=== PATIENT | male | born 1975 | race Caucasian/White ===

== ENCOUNTER 2017-08-28 09:44 | Emergency (ER) | payer MEDICARE, MEDICAID, SELFPAY ==
[2017-08-28 09:45] VITALS: BP 145/92; PULSE 73; RESP 16; TEMP 37; O2SAT 96; BMI 55.2
--- NOTE | 2017-08-28 10:00 | RAD_ITS ---
STUDY: X-RAY - LUMBAR SPINE REASON FOR EXAM: Male, 42 years old. Atraumatic back pain. TECHNIQUE: 3 view(s) of the lumbar spine were obtained. COMPARISON: None FINDINGS: Normal lumbar lordosis. There is no substantial scoliosis. There is a normal alignment of the vertebrae. Normal vertebral bodies and endplates. There is diffuse intervertebral disc space narrowing with osteophyte formation most marked at L2-3. There is diffuse facet sclerosis. The soft tissue structures are unremarkable. RAD/Lumbar Spine 2 or 3 Views IMPRESSION: Diffuse lumbar spondylosis as described. Electronically Signed: Viral Garcia MD at 10:59 EDT , Service support ,
--- NOTE | 2017-08-28 10:15 | ED.DCSUM_ITS ---
- ER Visit Summary Date of Service: 08/28/17 Chief Complaint: Body aches History of Present Illness: The patient is a 42 M who states that he has been moving from one trailer to another and [place]. Does not have a primary care physician. He states that he went to bed last night feeling okay but when he woke up this morning he had pain in his back particularly the low back. He notes paresthesias in the bilateral legs. Denies any fevers or rashes. No recent abscesses. He denies any IV drug use. Denies any bowel or bladder dysfunction. No leg weakness. He states that his back hurts to move and the pain radiates down the left leg. Physical Examination: Afebrile vital signs are stable Gen: Well-nourished well-developed morbidly obese and unkempt Head: Normocephalic atraumatic Eyes: Perrl EOMI ENT: TMs clear no rhinorrhea moist mucous membranes Neck: Supple no lymphadenopathy no JVD nontender CVS: Regular rate rhythm no murmurs normal S1-S2 Respiratory: No distress clear to auscultation bilaterally chest nontender Abdomen: Soft nontender nondistended normal bowel sounds no masses Back: Back shows tenderness to palpation over the lumbar paraspinal musculature. No rashes noted. Extremity: Nontender no edema Skin: Normal color no rash Neuro: alert orientated ?3 CN II-XII intact normal strength sensation reflexes patient has an antalgic gait. Psych: Normal affect normal mood Test Results: Lumbar spine films demonstrated significant degenerative changes particularly at L2-L3. Significant spurring seen. Emergency Department Course and Treatment: Patient most likely has a lumbar strain of the musculature which is resulting in exacerbation of an underlying back condition. Patient will receive Toradol, morphine, and Valium here in the emergency department. I will write for Valium Motrin and a few oxycodone at home. Patient was advised he needs to establish primary care as he will most likely be developing chronic back issues given his obesity and the significant degenerative changes that are noted on his lumbar spine. He will return if worsening (fever, neurologic deficits, bowel or bladder dysfunction, etc.) Impression: 1. Lumbar muscle strain 2. Sciatica 3. Degenerative joint disease of the lumbar spine This note was generated with DVDPlayation software. It may contain incorrect words, spelling, and punctuation that were not noted in review of the chart prior to signing ED Disposition - Plan for ED Patient: Disposition: Home or Assisted Living Chief Complaint: Other, Pain/Inj Instructions: ED Sciatica, ED Degenerative Joint Disease Prescriptions: Oxycodone [Oxyir] 5 mg PO Q6H PRN PRN 4 Days #16 tab PRN Reason: Pain Diazepam [Valium] 5 mg PO Q8 PRN #15 tab PRN Reason: Muscle Spasm Ibuprofen [Motrin] 800 mg PO TID PRN PRN #20 tab PRN Reason: Pain Referrals: Daniela Sheffield [NON-STAFF] - (call to arrange follow up) Additional Instructions: I would recommend calling Medicaid and find out if you were assigned a provider for primary care.
[2017-08-28] MEDS: morphine 10 MG/ML Syringe IM (11:17)
[2017-08-28] MEDS: Ketorolac 60 MG/2 ML Vial IM (11:18)
[2017-08-28] MEDS: diazePAM 5 MG Tablet PO (11:18)
== END 2017-08-28 12:08 | disposition home or self-care (01) ==
PROVIDERS: Emergency Provider Emergency Medicine
DX: S39.012A Strain of muscle, fascia and tendon of lower back, initial encounter (principal); X58.XXXA Exposure to other specified factors, initial encounter; Y93.9 Activity, unspecified; Y92.9 Unspecified place or not applicable; Y99.9 Unspecified external cause status; M54.30 Sciatica, unspecified side; M47.816 Spondylosis without myelopathy or radiculopathy, lumbar region; E66.01 Morbid (severe) obesity due to excess calories; Z85.528 Personal history of other malignant neoplasm of kidney
CPT/HCPCS: 72100; 96372; 99283

== ENCOUNTER 2017-09-05 14:46 | Inpatient (IN) | payer MEDICARE, MEDICAID, SELFPAY ==
[2017-09-05] VITALS (9 sets, daily range): BP systolic 130–161; BP diastolic 72–100; PULSE 65–106; RESP 14–18; TEMP 36.4–37.2; O2SAT 95–100; BMI 47.5; BMI 47.2; BMI 47.3
--- NOTE | 2017-09-05 15:52 | CT_ITS ---
STUDY: CT CERVICAL SPINE WITHOUT CONTRAST REASON FOR EXAM: Male, 42 years old. RADIATION DOSAGE (If Supplied By Facility): CTDIvol = ( 33.13 ) mGy, DLP = ( 800.69 ) mGycm TECHNIQUE: High resolution transaxial imaging was performed without contrast material. Sagittal and coronal images were reconstructed. Individualized dose optimization techniques were used for this CT. COMPARISON: None FINDINGS: Normal craniovertebral junction. Normal anterior atlantoaxial articulation. Normal odontoid process. Normal cervical lordosis. Normal vertebral bodies and posterior osseous elements. Mild intervertebral disc space narrowing noted throughout the cervical spine. No demonstrated fracture. No central canal stenosis, there is bilateral foraminal narrowing. Normal visualized soft tissue structures. CT/Spine Cervical without Contras IMPRESSION: Multilevel degenerative changes, as described above. Electronically Signed: Arnol Argueta MD at 16:38 EDT , Service support ,
--- NOTE | 2017-09-05 15:52 | CT_ITS ---
STUDY: CT LUMBAR SPINE WITHOUT CONTRAST REASON FOR EXAM: Male, 42 years old. SYNCOPE WITH FALL RADIATION DOSAGE (If Supplied By Facility): CTDIvol = ( 57.97 ) mGy, DLP = ( 1553.71 ) mGycm TECHNIQUE: The patient was scanned in a multi detector CT scanner. High resolution transaxial imaging was performed. Sagittal and coronal images were reconstructed. Individualized dose optimization techniques were used for this CT. COMPARISON: None FINDINGS: Normal lumbar lordosis. There is no substantial scoliosis. Normal vertebrae of the lumbar spine. L1-2: There is endplate spondylosis of the vertebral body. Loss of intervertebral disc height. Severe bilateral neural foraminal stenosis with compression of the exiting nerve roots. Narrowing of the lateral recess. No significant spinal stenosis. There is bilateral ligamentum flavum thickening. There is bilateral facet arthropathy. L2-3: There is endplate spondylosis of the vertebral body. Loss of intervertebral disc height. Severe bilateral neural foraminal stenosis with compression of the exiting nerve roots. Narrowing of the lateral recess. Severe spinal stenosis. There is bilateral ligamentum flavum thickening. There is bilateral facet arthropathy. L3-4: There is endplate spondylosis of the vertebral body. Loss of intervertebral disc height. Severe bilateral neural foraminal stenosis with compression of the exiting nerve roots. Narrowing of the lateral recess. Mild spinal stenosis. There is bilateral ligamentum flavum thickening. There is bilateral facet arthropathy. Vacuum disc phenomenon. L4-5: There is endplate spondylosis of the vertebral body. Loss of intervertebral disc height. Severe bilateral neural foraminal stenosis with compression of the exiting nerve roots. Narrowing of the lateral recess. Moderate spinal stenosis. There is bilateral ligamentum flavum thickening. There is bilateral facet arthropathy. L5-S1: There is endplate spondylosis of the vertebral body. Loss of intervertebral disc height. Normal bilateral facet joints. Normal central canal and bilateral lateral recesses. Normal bilateral intervertebral neural foramina. Normal visualized paraspinous soft tissue structures. CT/Spine Lumbar without Contrast IMPRESSION: Multilevel degenerative changes, as described above. Electronically Signed: Oz Parsons MD at 16:48 EDT , Service support ,
--- NOTE | 2017-09-05 15:52 | CT_ITS ---
STUDY: CT BRAIN WITHOUT CONTRAST REASON FOR EXAM: Male, 42 years old. Syncope, headache after a fall RADIATION DOSAGE (If Supplied By Facility): CTDIvol = ( 44.99 ) mGy, DLP = ( 829.85 ) mGycm TECHNIQUE: Transaxial CT imaging of the brain was performed without administration of intravenous contrast material. Individualized dose optimization techniques were used for this CT. COMPARISON: None. FINDINGS: Normal soft tissue structures. Normal calvarium. Normal size ventricles and extra-axial spaces for the patient's age. Normal white matter tracts of the cerebral hemispheres. Normal basal ganglia and thalami. Normal brainstem. Normal cerebellum. There is no intracranial hemorrhage. There are no findings of an acute ischemic infarction. Normal visualized paranasal sinuses. CT/Brain/Head without Contrast IMPRESSION: Normal unenhanced CT scan of the brain. Electronically Signed: Arnol Argueta MD at 16:36 EDT , Service support ,
--- NOTE | 2017-09-05 15:53 | EKG12_ITS ---
Test Reason : SYNCOPE Blood Pressure : / mmHG Vent. Rate : 070 BPM Atrial Rate : 070 BPM P-R Int : 152 ms QRS Dur : 084 ms QT Int : 414 ms P-R-T Axes : 039 014 029 degrees QTc Int : 447 ms Sinus rhythm with marked sinus arrhythmia Otherwise normal ECG Confirmed by FELICIANO BACA, ALEXYS ([id number]), loan expeditor VIVIAN SNELL ([id number]) on 09/08/2017 1:13:05 PM Referred By: KRYSTYNA Confirmed By:ALEXYS WIGGINS MD
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
--- NOTE | 2017-09-05 16:00 | PCA ---
NO OLD EKG
[2017-09-05 16:08] LABS: Absolute Lymphocyte Count 2.15 X10^3/ul (0.83-4.51); Absolute Neutrophil Count 6.1 X10^3/uL (2.0-7.7); Basophil# 0.05 X10^3/uL; Basophil% 0.5 % (0-1); Eosinophil# 0.13 X10^3/uL; Eosinophils% 1.4 % (0-5); Hematocrit 46.2 % (40-54); Hemoglobin 15.9 g/dl (13.0-16.5); Lymphocyte # 2.15 X10^3/ul (4.0); Lymphocyte % 22.8 % (19-41); Mean Corp Hgb Conc 34.4 g/gl (32-36); Mean Corpuscular Hgb 31.2 pg (27.0-32.0); Mean Corpuscular Volume 90.8 fL (80-94); Mean Platelet Vol. 11.1 fl (6.2-12.0); Monocyte# 1.01 X10^3/uL; Monocyte% 10.7 % (0-10); Neutrophil # 6.06 X10^3/uL (2.7-7.7); Neutrophil % 64.2 % (47-70); Platelet Count 284 K/mm3 (150-450); RBC Distribution Width CV 13.3 % (11.6-14.6); RBC Distribution Width SD 43.9 fl (35.1-43.9); Red Blood Count 5.09 M/mm3 (4.6-6.2); White Blood Count 9.4 K/mm3 (4.4-11.0)
[2017-09-05 16:12] LABS: POSITIVE COUNT NO; POSITIVE DIFFERENTIAL NO; POSITIVE MORPHOLOGY NO
[2017-09-05 16:21] LABS: ALB/GLOB Ratio 0.8 RATIO (0.9-2.4); AST(SGOT) 29 U/L (15-37); Alanine Aminotransfer ALT/SGPT 49 U/L (16-61); Albumin, Serum 2.9 g/dL (3.2-5.0); Alkaline Phosphatase 82 U/L (45-117); Anion Gap 7 (5-15); BUN 8 mg/dL (7-18); BUN/Creat Ratio 9.1 RATIO (10-20); Calcium,Total 8.7 mg/dL (8.5-10.1); Chloride 105 mmol/L (98-107); Creatinine, Serum 0.88 mg/dL (0.70-1.30); EST Glomerular Filtration Rate 100 mL/min (>60); Est Glom Filt Rate - Afr Amer 121 mL/min (>60); Estimated Creatinine Clearance 111.76 ml/min; Globulin 3.7 g/dL (2.2-4.2); Glucose 93 mg/dL (74-106); Potassium 3.8 mmol/L (3.5-5.1); Protein, Total 6.6 g/dL (6.4-8.2); Sodium Level 138 mmol/L (136-145)
[2017-09-05 16:25] LABS: Prothrombin Time (Protime)PT. 12.9 SECONDS (11.7-14.9)
[2017-09-05 16:44] LABS: Alcohol, Blood (Medical)-Serum < 3.0 mg/dL
--- NOTE | 2017-09-05 16:52 | ED.RN ---
informed Dr of pt c/o left leg jumping when lying back in bed. also states cannot squeeze rt hand shut.
--- NOTE | 2017-09-05 20:20 | RAD_ITS ---
STUDY: X-RAY - RIGHT HAND REASON FOR EXAM: Male, 42 years old. Right wrist pain after fall TECHNIQUE: 3 view(s) of the hand. COMPARISON: None. FINDINGS: Normal radiocarpal articulation. Normal distal radioulnar joint. Normal visualized carpal bones. Normal carpal articulations Normal carpometacarpal articulation of the thumb. Normal second through fifth carpometacarpal joints. Normal metacarpi. Normal metacarpophalangeal joint of the thumb. Normal interphalangeal joint of the thumb. Normal proximal and distal phalanges of the thumb. Normal metacarpophalangeal joints of the second through fifth fingers. Normal proximal and distal interphalangeal joints of the second through fifth fingers. Normal phalanges of the second through fifth fingers. The soft tissue structures are unremarkable. RAD/Hand Min 3 Views IMPRESSION: Normal x-ray examination of the hand. Electronically Signed: Oz Parsons MD at 20:53 EDT , Service support ,
--- NOTE | 2017-09-05 20:32 | HP.PCM_ITS ---
Problem List (1) HTN (hypertension) Status: Chronic Qualifiers: Hypertension type: essential hypertension Qualified Code(s): I10 - Essential (primary) hypertension (2) Depression Status: Chronic Qualifiers: Depression Type: unspecified Qualified Code(s): F32.9 - Major depressive disorder, single episode, unspecified (3) Morbid obesity Status: Chronic (4) GERD (gastroesophageal reflux disease) Status: Chronic Qualifiers: Esophagitis presence: esophagitis presence not specified Qualified Code(s) : K21.9 - Gastro-esophageal reflux disease without esophagitis (5) Weakness of extremity Status: Acute (6) Back pain Status: Acute Qualifiers: Back pain location: back pain in other location Chronicity: acute Qualified Code(s): M54.9 - Dorsalgia, unspecified (7) Urinary incontinence Status: Acute Qualifiers: Urinary Incontinence type: unspecified incontinence Qualified Code(s): R32 - Unspecified urinary incontinence (8) Syncope Status: Acute Qualifiers: Syncope type: unspecified Qualified Code(s): R55 - Syncope and collapse History of Present Illness Date of Admission: 09/05/17 Chief Complaint: Fall, syncope, BL extremity weakness and Back Pain The patient is a 42 y/o M w/ PMHx: Morbid Obesity, Depression, EtOH Abuse, Polysubstance Abuse (Cannabis, EtOH, Meth-snorted) w/ last EtOH intake the evening prior w/ normal 12-pack (16 oz each) daily and last meth the day prior, GERD, HTN who presents to the [facility] ED on 09/05/17 with history of onset both upper and lower extremity weakness, difficulty walking starting at the beginning of August with evaluation per physician with treatment w/ IBU and flexeril with minimal improvement w/ onset on day of ED presentation worsened extremity weakness, urinary incontinence following episode of kneeling down to fish bait picker items off the floor and loosing his balance, falling flat forward onto his face with short period of loss of consciousness with quick resolution of mental status, no shaking. He had ongoing urinary leaking x 3 while in the ED. He noted notable pain to the BL UE as when he fell forward he landed on his wrists. Work-up in the ED included T 97.6, heart rate 72, BP 142/72, respiratory rate 14, 100% on room air, unremarkable CBC, normal coags, unremarkable CMP. Past Medical History Past Medical History (Chronic Problems): Chronic Problems HTN (hypertension) (Chronic) Depression (Chronic) Morbid obesity (Chronic) GERD (gastroesophageal reflux disease) (Chronic) Allergies No Known Allergies Allergy (Verified 08/28/17 09:47) Home Medications: Ambulatory Orders Medication Instructions Recorded NK [NK] 09/05/17 Surgical History: - - Right kidney tumor resection. Psychiatric History: Depression Lives: Spouse/ Significant Other Smoking Status: Former smoker - Smoking approximately 6 years prior. Tobacco Use: Non-smoker Alcohol: Heavy - Drinks at least a 12 pack per day, 16 ounce each. Drugs: - - Notes occasional methamphetamine and cannabis usage. Notes cannabis this is nearly daily and methamphetamines intermittently with last admitted usage the day prior, snorted. - *Family History Maternal History Items: Heart Disease, Hypertension Paternal History Items: Diabetes Review of Systems Constitutional: Reports: Malaise, Weakness, Fatigue. Denies: Chills, Fever, Weight Change HEENT: Denies: Head Aches, Sinus Congestion, Sinus Drainage Cardiovascular: Reports: Syncope. Denies: Chest Pain, Palpitations Respiratory: Denies: Cough, Shortness of breath at rest, Sputum production Gastrointestinal: Denies: Abdominal Pain, Nausea, Vomiting Genitourinary: Reports: Incontinence. Denies: Dysuria Musculoskeletal: Reports: Back Pain. Denies: Joint Pain, Joint Tenderness Skin: Denies: Rash, Wounds Neurological: Reports: Focal weakness. Denies: Numbness, Tingling Psychiatric: Reports: Depression. Denies: Anxiety, Homicidal Ideations, Suicidal Ideations Hematologic/ Lymphatic: Denies: Easy Bruising, Easy Bleeding VTE Information - Inpt Only VTE Present on Admission: No VTE Mechan Device Prophylaxis: SCD's VTE Pharm Prophylaxis ordered?: Yes Patient Problems: Active and Suspected Problems Weakness of extremity (Acute) Back pain (Acute) Urinary incontinence (Acute) Syncope (Acute) Subjective: Laying in the ED, uncomfortable appearing, holding RUE, facial abrasions noted, injected sclera. Objective: Physical Examination: General: awake, alert, oriented x 3 and cooperative, laying in the ED bed in no apparent distress, does note ongoing difficulty moving extremities. Skin: normal color, turgor, no icterus, cyanosis except facial and BL UE abrasions s/p fall. HEENT: AT/NC, EOMI, PERRLA, dry MM, no carotid bruits or JVD noted although difficult secondary to thickened neck, injected sclera BL. Lungs: CTA bilaterally, moderate effort, mild decrease BL bases, no rales, ronchi or wheezing. Heart: Regular rate and rhythm; no gallop, rub audible. Abdomen: soft, morbidly obese, NTTP, ND, normal BS, no HSM detected; however, habitus makes examination difficult. Extremities: no cyanosis, clubbing, BL LE ankle 1+ edema, abrasions to extremities and face as noted skin, R hand w/ difficulty making fist secondary to discomfort. Neurological: patient awake, alert, oriented x 3; cognitive function intact; pupils equally reactive to light and accomodation; cranial nerves II-XII grossly normal, moving all 4 extremities but limited, 4/5 BL UE and LE, suspect primarily secondary to discomfort but difficult to assess, sensation intact, negative babinski. Psychiatric: affect appears normal, no acute evidence of depressive or anxiety feelings. - Physical Exam Vital Signs Temp Pulse Resp BP Pulse Ox 97.6 F L 65 16 130/100 H 98 09/05/17 14:47 09/05/17 19:12 09/05/17 19:12 09/05/17 19:12 09/05/17 19:12 Oxygen Delivery Method Room Air Weight: 331 lb Body Mass Index (BMI) 47.5 Laboratory Tests Past 24 Hrs 09/05/17 09/05/17 09/05/17 15:57 15:57 15:57 WBC 9.4 RBC 5.09 Hgb 15.9 Hct 46.2 MCV 90.8 MCH 31.2 MCHC 34.4 RDW 13.3 RDW Differential 43.9 Plt Count 284 MPV 11.1 Immature Gran % (Auto) 0.400 Neut % (Auto) 64.2 Lymph % (Auto) 22.8 [place] % (Auto) 10.7 H Eos % (Auto) 1.4 Baso % (Auto) 0.5 Absolute Neuts (auto) 6.1 Absolute Lymphs (auto) 2.15 Total Counted Not Reportable PT 12.9 INR 1.0 Sodium 138 Potassium 3.8 Chloride 105 Carbon Dioxide 26.0 Anion Gap 7 BUN 8 Creatinine 0.88 Estim Creat Clear Calc 111.76 Est GFR (MDRD) Af Amer 121 Est GFR (MDRD) Non-Af 100 BUN/Creatinine Ratio 9.1 L Glucose 93 Calcium 8.7 Total Bilirubin 0.40 AST 29 ALT 49 Alkaline Phosphatase 82 Total Protein 6.6 Albumin 2.9 L Globulin 3.7 Albumin/Globulin Ratio 0.8 L Ethyl Alcohol 09/05/17 15:57 WBC RBC Hgb Hct MCV MCH MCHC RDW RDW Differential Plt Count MPV Immature Gran % (Auto) Neut % (Auto) Lymph % (Auto) [place] % (Auto) Eos % (Auto) Baso % (Auto) Absolute Neuts (auto) Absolute Lymphs (auto) Total Counted PT INR Sodium Potassium Chloride Carbon Dioxide Anion Gap BUN Creatinine Estim Creat Clear Calc Est GFR (MDRD) Af Amer Est GFR (MDRD) Non-Af BUN/Creatinine Ratio Glucose Calcium Total Bilirubin AST ALT Alkaline Phosphatase Total Protein Albumin Globulin Albumin/Globulin Ratio Ethyl Alcohol < 3.0 Assessment/Plan Active and Suspected Problems Weakness of extremity (Acute) Back pain (Acute) Urinary incontinence (Acute) Syncope (Acute) The patient is a 42 y/o M w/ PMHx: Morbid Obesity, Depression, EtOH Abuse, Polysubstance Abuse (Cannabis, EtOH, Meth-snorted) w/ last EtOH intake the evening prior w/ normal 12-pack (16 oz each) daily and last meth the day prior, GERD, HTN who presents to the [facility] ED on 09/05/17 with history of onset both upper and lower extremity weakness, difficulty walking starting at the beginning of August with evaluation per physician with treatment w/ IBU and flexeril with minimal improvement w/ onset on day of ED presentation worsened extremity weakness, urinary incontinence following episode of kneeling down to fish bait picker items off the floor and loosing his balance, falling flat forward onto his face with short period of loss of consciousness with quick resolution of mental status. (1) Acute BL Extremity Weakness, Debility, Intractable Back Pain C-spine and lumbar w/ Urinary Incontinence: Unclear specific etiology, suspect more musculoskeletal and OA in etiology but given additional sxs need to evaluate neurological etiologies. CT brain, CT C-spine and lumbar spine with chronic changes without acute findings. Urinary incontinence concerning, will obtain UA/ UCx in case UTI as etiology but combined with extremity weakness, although atypical presentation, will admit to PCU, maintain on fall precautions, frequent positioning, po/IV pain regimen, low dose flexeril, toradol scheduled, anti-emetics, bowel regimen. Will consult PT and OT for evaluation. Neurology consulted, pending. Maintain on neurochecks. Obtain MRI brain and c-spine per Neurology recommendation. (2) Syncopal Event w/ Fall: CT Head and c-spine without acute findings. RUE plain film without fx. Elevated BL UE, ice. Treating #1 as noted above. Likely secondary to trauma upon falling and #1 concurrently, do not feel cardiac, however to be cautious will maintain on telemetry, obtain serial cardiac enzymes and EKGs, obtain orthostatic VS if improved and able to obtain, fall precautions, position changes. (3) Acute EtOH Abuse with Impending Acute Withdrawal: Last intake the evening prior he notes, pending EtOH level and urine for drug screen, initiate and continue on taper course of librium, as needed Seroquel, Catapres, Bentyl, Vistaril, IV fluids, IV antiemetics, Tylenol as needed for pain. CM consulted to assist w/ discharge planning from a substance abuse standpoint. Mag, phos pending. Maintain on CIWA protocol. (4) Hypertension: Restart home lisinopril, hydrochlorothiazide, PRN hydralazine. (5) Depression: The patient and will restart low-dose Celexa and low-dose Abilify with titration upward per primary care physician. He was recently on these regimens at higher dose but has been off for several weeks secondary to not having a PCP in the area. (6) Morbid Obesity: Weight loss and lifestyle changes encouraged, nutrition consulted. (7) Polysubstance Abuse: Encouraged cessation of cannabis and also intermittent usage meth (snorted), pending UDS. CM consulted. (8) GERD: Famotidine. (9) DVT Prophylaxis: SCDs, lovenox. Code Visit Inpatient E&M: 38015 Init Hosp L3
[2017-09-05 21:42] LABS: Phosphorus 2.2 mg/dL (2.5-4.9)
[2017-09-05 21:58] LABS: Magnesium 2.2 mg/dL (1.6-2.6)
[2017-09-05 22:10] LABS: Hemoglobin A1c 5.2 % (4.2-6.3)
[2017-09-05] MEDS: Lactated Ringers 1,000 ML 125 ML IV (22:56)
[2017-09-05] MEDS: Ketorolac 30 MG/ML Syringe IV (23:53)
[2017-09-05] MEDS: Enoxaparin 40 MG/0.4 ML Syringe SC (23:54)
[2017-09-05] MEDS: Famotidine 20 MG Tablet PO (23:54)
[2017-09-06] VITALS (8 sets, daily range): BP systolic 144–152; BP diastolic 91–100; PULSE 60–75; RESP 16; TEMP 36.7–37.1; O2SAT 95–97
[2017-09-06 00:29] LABS: Vista UDS pH Range 7
[2017-09-06 00:51] LABS: Amphetamine Urine VISTA NEGATIVE (<1000 ng/mL); Barbiturate Urine VISTA NEGATIVE (< 200 ng/mL); Benzodiazepine Urine VISTA NEGATIVE (< 200 ng/mL); Cocaine Urine VISTA NEGATIVE (< 300 ng/mL); Ecstacy Urine VISTA NEGATIVE (< 500 ng/mL); Methadone Urine VISTA NEGATIVE (< 300 ng/mL); PCP Urine VISTA NEGATIVE (< 25 ng/mL); THC Urine VISTA POSITIVE (< 50 ng/mL)
[2017-09-06 03:36] LABS: Hematocrit 43.5 % (40-54); Hemoglobin 14.3 g/dl (13.0-16.5); Mean Corp Hgb Conc 32.9 g/gl (32-36); Mean Corpuscular Hgb 30.1 pg (27.0-32.0); Mean Corpuscular Volume 91.6 fL (80-94); Platelet Count 271 K/mm3 (150-450); RBC Distribution Width CV 13.3 % (11.6-14.6); RBC Distribution Width SD 44.6 fl (35.1-43.9); Red Blood Count 4.75 M/mm3 (4.6-6.2)
[2017-09-06 03:39] LABS: Scan Indicated on CBC? Y/N NO
[2017-09-06] MEDS: chlordiazePOXIDE 25 MG Capsule 50 MG PO ×3 (03:42→13:34)
[2017-09-06 04:24] LABS: Anion Gap 9 (5-15); BUN 8 mg/dL (7-18); BUN/Creat Ratio 9.7 RATIO (10-20); Calcium,Total 8.1 mg/dL (8.5-10.1); Chloride 106 mmol/L (98-107); Creatinine, Serum 0.83 mg/dL (0.70-1.30); EST Glomerular Filtration Rate 108 mL/min (>60); Est Glom Filt Rate - Afr Amer 130 mL/min (>60); Estimated Creatinine Clearance 118.49 ml/min; Glucose 104 mg/dL (74-106); Potassium 3.3 mmol/L (3.5-5.1); Sodium Level 139 mmol/L (136-145)
--- NOTE | 2017-09-06 05:55 | EKG12_ITS ---
Test Reason : AM EKG Blood Pressure : / mmHG Vent. Rate : 071 BPM Atrial Rate : 071 BPM P-R Int : 186 ms QRS Dur : 096 ms QT Int : 414 ms P-R-T Axes : 049 007 029 degrees QTc Int : 449 ms Normal sinus rhythm with sinus arrhythmia Normal ECG Confirmed by DANIEL BACA, TRAE ([id number]), [employer] VIVIAN SNELL ([id number] on 09/10/2017 1:05:15 PM Referred By: PHILLIP Confirmed By:TRAE SANCHEZ MD
[2017-09-06] MEDS: Ketorolac 30 MG/ML Syringe IV ×2 (05:57→13:35)
[2017-09-06] MEDS: 0.9% NaCl Peripheral Flush Adult/Peds IV (05:57)
--- NOTE | 2017-09-06 06:34 | MRI_ITS ---
STUDY: MRI LUMBAR SPINE WITHOUT CONTRAST REASON FOR EXAM: Male, 42 years old. Low back pain and extremity weakness. Fall. TECHNIQUE: Standardized fat and water weighted pulse sequences were obtained in the sagittal and axial planes. COMPARISON: CT lumbar spine 09/05/2017. FINDINGS: T11-T12: (Sagittal only). Schmorl's node in the central aspect of T11 inferior endplate. Minimal anterior wedging of T12 superior endplate without bone edematous presumably from remote injury. Normal disc height and morphology. Normal central canal and bilateral intervertebral neural foramina. T12-L1: (Sagittal only). Prominent anterior marginal spurs with near complete osseous union. Normal T12 inferior endplate. Minimal anterior wedging of L1 superior endplate without bone edema may be developmental or from remote injury. Normal disc height, hydration and morphology. Normal central canal and bilateral intervertebral neural foramina. Normal lumbar lordosis. There is no substantial scoliosis. Normal conus medullaris that terminates at the upper L1-2 vertebral body level. L1-2: Minimal anterior marginal spurs. Schmorl's node in the central aspect of the L1 inferior endplate. Minimal anterior wedging of the L2 superior endplate without bone edema may be developmental or from remote injury. Normal disc height with minimal loss of disc hydration. Normal disc morphology. Moderate central canal stenosis secondary to developmental short pedicles and dorsal epidural lipomatosis. The AP canal diameter is 8 mm. Mild degenerative facet arthropathy. The calcified posterior ligamenta flava are better seen on the recent CT. Normal bilateral intervertebral neural foramina. L2-3: Large anterior marginal spurs. Modic type II degenerative vertebral marrow fatty changes underneath the vertebral endplates. Moderate disc space height narrowing. Severe central canal stenosis secondary to posterior marginal spurs and developmentally short pedicles. The AP canal diameter is 5 mm. Severe stenosis of the left lateral recess. Mild stenosis of the right lateral recess. Partial calcification of the posterior ligamenta flava is visible only on CT. Normal facet joints. Moderate stenosis of the left intervertebral neural foramen. Normal right intervertebral neural foramen. L3-4: Asymmetric anterior marginal spurs. Schmorl's nodes in the vertebral endplates. Normal disc height with mild loss of disc hydration. Normal disc morphology. Moderately pronounced central canal stenosis secondary to developmental short pedicles and dorsal epidural lipomatosis. The partial calcification of the posterior ligamenta flava are obvious only and CT. Mild asymmetric degenerative facet arthropathy. Normal bilateral intervertebral neural foramina. L4-5: Anterior marginal spurs. Normal disc height with minimal loss of disc hydration. Normal disc morphology. Moderately pronounced asymmetric central canal stenosis secondary to developmentally short pedicles and posterior annular bulging disc. The AP canal diameter is 5 mm. Mild asymmetric posterior ligamenta flava hypertrophy. Moderate right degenerative facet arthropathy. Mild to moderate left degenerative facet arthropathy. Mild stenosis of the right intervertebral neural foramen. Normal left intervertebral neural foramen. L5-S1: Small anterior marginal spurs. Normal disc height with minimal loss of disc hydration. Normal disc morphology. Normal central canal and bilateral lateral recesses. Mild to moderate asymmetric degenerative facet arthropathy, greater on the right. Mild stenosis of the right intervertebral neural foramen. Normal left intervertebral neural foramen. Normal visualized sacral ala. Normal visualized paraspinous soft tissue structures. MRI/Spine Lumbar (Routine) IMPRESSION: 1. Severe central canal stenosis at L2-L3 disc level secondary to posterior marginal spurs and developmentally short pedicles. There is also severe stenosis of the left lateral recess, moderate stenosis of the left intervertebral neural foramen and Modic type II degenerative vertebral marrow fatty changes underneath the vertebral endplates. 2. Moderately pronounced central canal stenosis at L3-L4 disc level secondary to developmentally short pedicles and dorsal epidural lipomatosis. 3. Moderately pronounced asymmetric central canal stenosis secondary to developmentally short pedicles and dorsal epidural lipomatosis. 4. Moderate central canal stenosis at L1-L2 disc level secondary to developmentally short pedicles and dorsal epidural lipomatosis. 5. Minimal anterior wedging of the superior endplates of T12, L1 and L2 vertebral bodies without bone edema may be developmental or from remote injury. 6. No MRI evidence of lumbar extruded disc fragment. Electronically Signed: Felix Bell MD at 11:13 EDT , Service support ,
[2017-09-06 06:47] LABS: Bacteria 0 SEEN /hpf (None Seen); Mucous, Urine 0 SEEN /hpf (<or=2+); Squamous Epithelial Cells - UA 0 SEEN /hpf (0-5)
[2017-09-06 07:00] LABS: Color, Urine Yellow (Yellow); Glucose, Dipstick Normal (Normal); Ketone-Dipstick Negative (Negative); Leukocyte Esterase-Dipstick Negative /ul (Negative); Nitrite-Dipstick Negative (Negative); Occult Blood-Urine 25 /ul (Negative); Protein-Dipstick Negative (Negative); Specific Gravity, Urine 1.015 (1.002-1.030); Urine Bilirubin Dipstick Negative (Negative); Urine Clarity Clear (Clear); Urine Urobilinogen Normal (Normal)
[2017-09-06 07:05] LABS: Red Blood Cells-Urine 0-5 SEEN /hpf (0-5); White Blood Cells 0-5 SEEN /hpf (0-5)
[2017-09-06] MEDS: Multivitamins,Ther W-Minerals Tablet 1 TABLET PO (07:53)
[2017-09-06] MEDS: Thiamine Hydrochloride 100 MG Tablet PO (07:54)
[2017-09-06] MEDS: Folic Acid 1 MG Tablet PO (07:54)
[2017-09-06] MEDS: ARIPiprazole 2 MG Tablet PO (07:55)
[2017-09-06] MEDS: Lisinopril 10 MG Tablet PO (07:56)
[2017-09-06] MEDS: Enoxaparin 40 MG/0.4 ML Syringe SC (07:57)
[2017-09-06] MEDS: HYDROCHLOROTHIAZIDE 12.5 MG CAPSULE PO (07:57)
[2017-09-06] MEDS: Famotidine 20 MG Tablet PO (07:57)
[2017-09-06] MEDS: Citalopram 10 MG Tablet PO (07:58)
--- NOTE | 2017-09-06 11:02 | NURSING ---
VS completed at this time due to pt off floor for testing when VSA due
--- NOTE | 2017-09-06 12:00 | PCM.DC.SUM ---
<Kylie Brown - Last Filed: 09/06/17 12:06> Discharge Date and Diagnosis Date of Admission: 09/05/17 Date of Discharge: 09/06/17 - Primary Discharge Diagnosis Active and Suspected Problems 1. Bilateral extremity weakness and lumbar back pain 2. Syncope with fall - Secondary Discharge Diagnosis Chronic Problems HTN (hypertension) (Chronic) Depression (Chronic) Morbid obesity (Chronic) GERD (gastroesophageal reflux disease) (Chronic) Hospital Course and Treatment Imaging Results: Diagnostic Data Brain CT 09/05/17 15:52 IMPRESSION: Normal unenhanced CT scan of the brain. Electronically Signed: Arnol Argueta MD at 16:36 EDT , Service support , Cervical Spine CT 09/05/17 15:52 IMPRESSION: Multilevel degenerative changes, as described above. Electronically Signed: Arnol Argueta MD at 16:38 EDT , Service support , Lumbar Spine CT 09/05/17 15:52 IMPRESSION: Multilevel degenerative changes, as described above. Electronically Signed: Oz Parsons MD at 16:48 EDT , Service support , Hand X-Ray 09/05/17 20:20 IMPRESSION: Normal x-ray examination of the hand. Electronically Signed: Oz Parsons MD at 20:53 EDT , Service support , Lumbar Spine MRI 09/06/17 06:34 IMPRESSION: 1. Severe central canal stenosis at L2-L3 disc level secondary to posterior marginal spurs and developmentally short pedicles. There is also severe stenosis of the left lateral recess, moderate stenosis of the left intervertebral neural foramen and Modic type II degenerative vertebral marrow fatty changes underneath the vertebral endplates. 2. Moderately pronounced central canal stenosis at L3-L4 disc level secondary to developmentally short pedicles and dorsal epidural lipomatosis. 3. Moderately pronounced asymmetric central canal stenosis secondary to developmentally short pedicles and dorsal epidural lipomatosis. 4. Moderate central canal stenosis at L1-L2 disc level secondary to developmentally short pedicles and dorsal epidural lipomatosis. 5. Minimal anterior wedging of the superior endplates of T12, L1 and L2 vertebral bodies without bone edema may be developmental or from remote injury. 6. No MRI evidence of lumbar extruded disc fragment. Electronically Signed: Felix Bell MD at 11:13 EDT , Service support , Brain MRI 09/06/17 21:08 IMPRESSION: Normal unenhanced MRI of the brain. Electronically Signed: Felix Bell MD at 10:34 EDT , Service support , Cervical Spine MRI 09/06/17 21:08 IMPRESSION: 1. Limited study due to poor bxfkva-al-bmlag ratio limiting soft tissue detail. 2. Suspicious C5-C6 posterior midline disc extrusion with mild ventral cord compression. No obvious intrinsic signal abnormality of the compressed spinal cord. COMMENT: Cervical myelogram may be helpful for further evaluation if surgery is a therapeutic consideration. Electronically Signed: Felix Bell MD at 10:56 EDT , Service support , Dr. Caldera- Neurology Operations: None Procedures: None Summary of Care Provided: The patient is a 42 year old M who presents to the emergency room 09/05/2017 due to syncope with fall and bilateral extremity weakness and back pain. He has a past medical history of morbid obesity, depression, alcohol abuse, polysubstance abuse, GERD, hypertension. Patient states he drinks 12 pack of beer per day. Tox screen positive for cannabinoids. Urinalysis negative. Troponin negative. Brain CT normal. Cervical spine CT showed multilevel degenerative changes. Lumbar spine CT showed multilevel degenerative changes. MRI of the lumbar spine with chronic changes as noted above. Cervical spine shows C5-C6 posterior midline disc extrusion with mild ventral cord compression. This was discussed with neurology who recommends transfer to acute care facility for further neuro/spine surgery evaluation. Patient is able to move his feet but states he is unable to walk. Patient had urinary incontinence prior to admission. Moon currently in place at discharge. Patient is stable at time of discharge to [facility]. Patient seen and examined prior to discharge. Alert, oriented. Lungs clear. Heart rate regular in rate and rhythm, no murmur. Abdomen soft, nontender, obese. Cranial nerves II through XII grossly intact. Sensory intact. Patient with bilateral lower and upper extremity weakness. Vital signs stable. This patient was seen by KARTHIKEYAN Bowser under the supervision of Dr. Ferguson. Home Medications: Medications to take at Discharge NK [NK] 09/05/17 Primary Care Physician: NOT,DEFINED [NON-STAFF] - Disposition: [facility] care Hospital Minutes spent on discharge:: 35 Patient Condition:: Stable Medical Necessity - Tobacco Use Smoking Status: Former smoker Tobacco Use: Non-smoker Meaningful Use Info Meaningful Use Diagnoses (Choose all that apply): None applicable <Rodrigo Ferguson - Last Filed: 09/06/17 17:00> Discharge Date and Diagnosis - Primary Discharge Diagnosis 1. Severe bilateral lower extremity weakness and moderate upper extremity weakness most probably secondary to C5-C6 posterior midline disc extrusion with moderate ventral cord compression. 2. Syncope with fall 3. 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 I have independently interviewed and examined the patient and reviewed pertinent history, examination findings, laboratory and plan of management. I have reviewed the note and agree with the documented findings with the few additional points. In brief, patient is admitted for syncope with fall on both knees and elbow. He and examined today Lower extremity power is 1/5 at major joints and not able to move lower extremities. Upper extremity, left more than right power is 4/5. Patient also had urinary incontinence signs of cord compression. Patient had cervical spine MRI which noted as C5-C6 posterior midline disc extrusion with moderate ventral cord compression. 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 Outside radiologist Dr. Felix Bell called with informed about the moderate at C5-C6 level ventral cervical cord. This was discussed with neurologist Dr. Caldera. He advised transfer to tertiary care for cervical spine decompressive surgery. He advised sooner surgical treatment for better Neurological outcome. patient is transferred to [facility] as mentioned above. I have discussed my assessment with JUKE BOX MECHANIC, Kylie and orders have been reviewed. Total time spent, exact 35 minutes on discharge meds reconciliation, examination, review of imaging and blood test and discussion with the patient and transferred to [facility]. [] Code Visit Inpatient E&M: 31227 Disch Hosp
--- NOTE | 2017-09-06 12:06 | DS.PCM_ITS ---
<Kylie Brown - Last Filed: 09/06/17 12:06> Discharge Date and Diagnosis Date of Admission: 09/05/17 Date of Discharge: 09/06/17 - Primary Discharge Diagnosis Active and Suspected Problems 1. Bilateral extremity weakness and lumbar back pain 2. Syncope with fall - Secondary Discharge Diagnosis Chronic Problems HTN (hypertension) (Chronic) Depression (Chronic) Morbid obesity (Chronic) GERD (gastroesophageal reflux disease) (Chronic) Hospital Course and Treatment Imaging Results: Diagnostic Data Brain CT 09/05/17 15:52 IMPRESSION: Normal unenhanced CT scan of the brain. Electronically Signed: Arnol Argueta MD at 16:36 EDT , Service support , Cervical Spine CT 09/05/17 15:52 IMPRESSION: Multilevel degenerative changes, as described above. Electronically Signed: Arnol Argueta MD at 16:38 EDT , Service support , Lumbar Spine CT 09/05/17 15:52 IMPRESSION: Multilevel degenerative changes, as described above. Electronically Signed: Oz Parsons MD at 16:48 EDT , Service support , Hand X-Ray 09/05/17 20:20 IMPRESSION: Normal x-ray examination of the hand. Electronically Signed: Oz Parsons MD at 20:53 EDT , Service support , Lumbar Spine MRI 09/06/17 06:34 IMPRESSION: 1. Severe central canal stenosis at L2-L3 disc level secondary to posterior marginal spurs and developmentally short pedicles. There is also severe stenosis of the left lateral recess, moderate stenosis of the left intervertebral neural foramen and Modic type II degenerative vertebral marrow fatty changes underneath the vertebral endplates. 2. Moderately pronounced central canal stenosis at L3-L4 disc level secondary to developmentally short pedicles and dorsal epidural lipomatosis. 3. Moderately pronounced asymmetric central canal stenosis secondary to developmentally short pedicles and dorsal epidural lipomatosis. 4. Moderate central canal stenosis at L1-L2 disc level secondary to developmentally short pedicles and dorsal epidural lipomatosis. 5. Minimal anterior wedging of the superior endplates of T12, L1 and L2 vertebral bodies without bone edema may be developmental or from remote injury. 6. No MRI evidence of lumbar extruded disc fragment. Electronically Signed: Felix Bell MD at 11:13 EDT , Service support , Brain MRI 09/06/17 21:08 IMPRESSION: Normal unenhanced MRI of the brain. Electronically Signed: Felix Bell MD at 10:34 EDT , Service support , Cervical Spine MRI 09/06/17 21:08 IMPRESSION: 1. Limited study due to poor inemfr-rx-uaiic ratio limiting soft tissue detail. 2. Suspicious C5-C6 posterior midline disc extrusion with mild ventral cord compression. No obvious intrinsic signal abnormality of the compressed spinal cord. COMMENT: Cervical myelogram may be helpful for further evaluation if surgery is a therapeutic consideration. Electronically Signed: Felix Bell MD at 10:56 EDT , Service support , Dr. Caldera- Neurology Operations: None Procedures: None Summary of Care Provided: The patient is a 42 year old M who presents to the emergency room 09/05/2017 due to syncope with fall and bilateral extremity weakness and back pain. He has a past medical history of morbid obesity, depression, alcohol abuse, polysubstance abuse, GERD, hypertension. Patient states he drinks 12 pack of beer per day. Tox screen positive for cannabinoids. Urinalysis negative. Troponin negative. Brain CT normal. Cervical spine CT showed multilevel degenerative changes. Lumbar spine CT showed multilevel degenerative changes. MRI of the lumbar spine with chronic changes as noted above. Cervical spine shows C5-C6 posterior midline disc extrusion with mild ventral cord compression. This was discussed with neurology who recommends transfer to acute care facility for further neuro/spine surgery evaluation. Patient is able to move his feet but states he is unable to walk. Patient had urinary incontinence prior to admission. Moon currently in place at discharge. Patient is stable at time of discharge to [facility]. Patient seen and examined prior to discharge. Alert, oriented. Lungs clear. Heart rate regular in rate and rhythm, no murmur. Abdomen soft, nontender, obese. Cranial nerves II through XII grossly intact. Sensory intact. Patient with bilateral lower and upper extremity weakness. Vital signs stable. This patient was seen by KARTHIKEYAN Bowser under the supervision of Dr. Ferguson. Home Medications: Medications to take at Discharge NK [NK] 09/05/17 Primary Care Physician: NOT,DEFINED [NON-STAFF] - Disposition: [facility] care Hospital Minutes spent on discharge:: 35 Patient Condition:: Stable Medical Necessity - Tobacco Use Smoking Status: Former smoker Tobacco Use: Non-smoker Meaningful Use Info Meaningful Use Diagnoses (Choose all that apply): None applicable <Rodrigo Ferguson - Last Filed: 09/06/17 17:00> Discharge Date and Diagnosis - Primary Discharge Diagnosis 1. Severe bilateral lower extremity weakness and moderate upper extremity weakness most probably secondary to C5-C6 posterior midline disc extrusion with moderate ventral cord compression. 2. Syncope with fall 3. 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 I have independently interviewed and examined the patient and reviewed pertinent history, examination findings, laboratory and plan of management. I have reviewed the note and agree with the documented findings with the few additional points. In brief, patient is admitted for syncope with fall on both knees and elbow. He and examined today Lower extremity power is 1/5 at major joints and not able to move lower extremities. Upper extremity, left more than right power is 4/5. Patient also had urinary incontinence signs of cord compression. Patient had cervical spine MRI which noted as C5-C6 posterior midline disc extrusion with moderate ventral cord compression. 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 Outside radiologist Dr. Felix Bell called with informed about the moderate at C5-C6 level ventral cervical cord. This was discussed with neurologist Dr. Caldera. He advised transfer to tertiary care for cervical spine decompressive surgery. He advised sooner surgical treatment for better Neurological outcome. patient is transferred to [facility] as mentioned above. I have discussed my assessment with GLASS LATHE OPERATOR, Kylie and orders have been reviewed. Total time spent, exact 35 minutes on discharge meds reconciliation, examination , review of imaging and blood test and discussion with the patient and transferred to [facility]. [] Code Visit Inpatient E&M: 28416 Disch Hosp
--- NOTE | 2017-09-06 14:39 | NURSING ---
report given to nuha qureshi at [facility]
--- NOTE | 2017-09-06 21:08 | MRI_ITS ---
STUDY: MRI BRAIN WITHOUT CONTRAST REASON FOR EXAM: Male, 42 years old. Fall. Syncope. A D weakness. TECHNIQUE: Standardized multiplanar fat and water weighted pulse sequences were obtained. COMPARISON: CT head without contrast 09/05/2017. FINDINGS: No restricted diffusion to suspect acute or subacute ischemic infarct. Normal size of the ventricles and extra-axial spaces for the patient's age. Normal white matter tracts of the supratentorial brain. Normal bilateral basal ganglia. Normal thalami. There is no extra-axial fluid accumulation. Normal flow voids within the major intracranial circulation suggesting patency by spin echo criteria. Normal sella turcica, pituitary gland, infundibular stalk, optic chiasm and hypothalamus. Normal tectal plate and pineal gland. Normal midbrain, hany and medulla. Normal cerebellum. Normal basal cisterns. Normal bilateral temporal bones. Normal bilateral internal auditory canals. No demonstrated orbital abnormality, within the constraints of a routine brain study. Normal visualized paranasal sinuses. Normal calvarium and skull base. Normal visualized soft tissue structures. Normal visualized upper cervical spine. MRI/Brain without Contrast IMPRESSION: Normal unenhanced MRI of the brain. Electronically Signed: Felix Bell MD at 10:34 EDT , Service support ,
--- NOTE | 2017-09-06 21:08 | MRI_ITS ---
STUDY: MRI CERVICAL SPINE WITHOUT CONTRAST REASON FOR EXAM: Male, 42 years old. Neck pain and extremity weakness. Syncope. TECHNIQUE: Standardized fat and water weighted pulse sequences were obtained in the sagittal and axial planes. COMPARISON: None FINDINGS: Poor mbfskn-hb-wooxf ratio limiting soft tissue detail particularly of the vertebral bodies and in front. Normal foramen magnum and brainstem-cervical cord junction. Normal craniovertebral junction. Normal predental space. Normal lateral atlantoaxial articulations. Normal odontoid process. Normal cervical lordosis. Normal vertebral bodies and posterior osseous elements. C2-3: Normal endplates. Normal disc height, signal and morphology. Normal central canal and intervertebral neural foramina. C3-4: Normal endplates. Normal disc height, signal and morphology. Normal central canal and intervertebral neural foramina. C4-5: Normal endplates. Normal disc height, signal and morphology. Normal central canal and intervertebral neural foramina. C5-6: Prominent midline ventral extradural defect is worrisome for posterior midline disc extrusion. There is suspicious minimal posterior displacement of the cervical spinal cord. C6-7: Normal endplates. Normal disc height, signal and morphology. Normal central canal and intervertebral neural foramina. C7-T1: Normal endplates. Normal disc height, signal and morphology. Normal central canal and intervertebral neural foramina. Suboptimal visualization of the cervical spinal cord at the level of the C5-C6 ventral cord compression. No obvious intrinsic signal abnormality of the spinal cord. Normal visualized soft tissue structures. MRI/Spine Cervical (Routine) IMPRESSION: 1. Limited study due to poor dybywn-dc-kfyng ratio limiting soft tissue detail. 2. Suspicious C5-C6 posterior midline disc extrusion with mild ventral cord compression. No obvious intrinsic signal abnormality of the compressed spinal cord. COMMENT: Cervical myelogram may be helpful for further evaluation if surgery is a therapeutic consideration. Electronically Signed: Felix Bell MD at 10:56 EDT , Service support ,
== END 2017-09-06 15:33 | disposition short-term general hospital (02) | DRG 552 ==
LOC: ED 16:13 → PCU 20:38
PROVIDERS: Admitting Provider Family Medicine; Emergency Provider Emergency Medicine; Visit Provider Internal Medicine
DX: M50.022 Cervical disc disorder at C5-C6 level with myelopathy (principal); Z68.42 Body mass index [BMI] 45.0-49.9, adult; I10 Essential (primary) hypertension; F32.9 Major depressive disorder, single episode, unspecified; E66.01 Morbid (severe) obesity due to excess calories; K21.9 Gastro-esophageal reflux disease without esophagitis; M51.36 Other intervertebral disc degeneration, lumbar region; M48.061 Spinal stenosis, lumbar region without neurogenic claudication; M47.9 Spondylosis, unspecified; R55 Syncope and collapse; R32 Unspecified urinary incontinence; Z87.891 Personal history of nicotine dependence
CPT/HCPCS: 36415; 51702; 70450; 70551; 72125; 72131; 72141; 72148; 73130; 80048; 80053; 80307; 80320; 81001; 83036; 83735; 84100; 84484; 85025; 85027; 85610; 87086; 93005; 97161; 97165; 99285; J7030; J7040; J7120; A4216; G0480